=== PATIENT | female | born 1965 | race Caucasian/White ===

== ENCOUNTER → 2016-09-12 | Outpatient (CLI) | payer BC | LOC: MC.RAD 15:19 | DX: Z12.31 Encounter for screening mammogram for malignant neoplasm of breast (principal) ==

== ENCOUNTER → 2018-04-28 | Outpatient (CLI) | payer BC | LOC: COL.RAD 07:26 | DX: R10.13 Epigastric pain (principal) ==

== ENCOUNTER → 2018-04-30 | Outpatient (CLI) | payer BC | LOC: COL.RAD 06:51 | DX: R10.13 Epigastric pain (principal) | CPT/HCPCS: A9537 ==

== ENCOUNTER 2018-08-12 09:05 | Emergency (ER) | payer BC ==
[~2018-08-12] VITALS: Ht 172.7 cm; Wt 69.1 kg
[2018-08-12 09:07] VITALS: TEMP 97
[2018-08-12 09:45] LABS: BASO % 0.6 % (0.0-2.0); EOS % 0.6 % (0-4.0); GRAN # 4.7 (1.4-6.5); GRAN % 73.5 % (42.2-75.2); HEMATOCRIT 41.2 % (37.0-47.0); HEMOGLOBIN 13.5 g/dl (12.5-16.0); LYMPH # 1.3 (1.2-3.4); LYMPH % 19.9 % (20.0-51.0); MEAN CELL VOLUME 92 fl (80.0-100.0); MEAN CORPUSCULAR HEMOGLOBIN 30 pg (27.0-31.0); MEAN CORPUSCULAR HGB CONC 33 g/dl (33.0-37.0); MEAN PLATELET VOLUME 9.7 fl (7.4-10.4); MONO # 0.3 (0.1-0.6); MONO % 5.1 % (1.7-9.3); PLATELET COUNT 302 K/mm3 (130-400); RED BLOOD COUNT 4.49 M/mm3 (4.10-5.30); REDCELL DISTRIBUTION WIDTH-CV 13.2 % (11.5-14.5)
[2018-08-12 09:51] LABS: ALANINE AMINOTRANSFERASE 12 U/L (9-52); ALBUMIN 4.7 gm/dL (3.5-5.0); ALKALINE PHOSPHATASE 90 U/L (50-136); ANION GAP 12 mmol/L (7-16); AST,SGOT 27 U/L (15-37); BILIRUBIN,TOTAL 0.5 mg/dL (0.0-1.0); BLOOD UREA NITROGEN 13 mg/dL (7-17); CARBON DIOXIDE 25 mmol/L (22-30); CHLORIDE 107 mmol/L (98-107); CREATININE, serum 0.95 (0.52-1.25); GLUCOSE 154 mg/dL (74-106); POTASSIUM 3.4 mmol/L (3.4-5.0); SODIUM 144 mmol/L (137-145); TOTAL PROTEIN 8.2 gm/dL (6.4-8.2)
[2018-08-12 10:03] LABS: TROPONIN-I < 0.012 ng/mL (0.000-0.035)
[2018-08-12] MEDS ORDERED: PROTONIX 40MG T40 MG PO (10:05)
[2018-08-12 11:15] VITALS: BP 120/77; PULSE 88
== END 2018-08-12 11:38 | disposition home or self-care (01) ==
LOC: COL.ER 09:05
PROVIDERS: Emergency Medicine
DX: I49.8 Other specified cardiac arrhythmias (principal); R55 Syncope and collapse

== ENCOUNTER → 2019-01-11 | Outpatient (CLI) | payer BC ==
[~2019-01-11] MED LIST: PROTONIX 40MG T40 MG PO
== END ==
LOC: MC.RAD 08:30
DX: Z12.31 Encounter for screening mammogram for malignant neoplasm of breast (principal)

== ENCOUNTER → 2020-07-23 | Outpatient (CLI) | payer BC | LOC: MC.RAD 08:45 | DX: Z12.31 Encounter for screening mammogram for malignant neoplasm of breast (principal) ==